=== PATIENT | male | born 1935 | race Caucasian/White ===

== ENCOUNTER → 2024-12-17 15:52 | Outpatient (REF) | payer MEDICARE, SELFPAY | LOC: HWRCS 15:52 | PROVIDERS: ATTENDING PHYSICIAN Internal Medicine Interventional Cardiology; FAMILY PHYSICIAN Family Medicine | DX: I25.2 Old myocardial infarction (principal) | CPT/HCPCS: 93306 ==

== ENCOUNTER 2025-04-09 10:25 | Emergency (ER) | payer MEDICARE, SELFPAY ==
[2025-04-09 10:41] VITALS: BP 166/65
--- NOTE | 2025-04-09 10:43 | ED.GENMED ---
History of Present Illness
General
Chief Complaint: Cold/Flu/URI Symptoms
Time Seen by Provider: 04/09/25 10:28
History of Present Illness
History of Present Illness:
89-year-old male with past medical history of CAD, hypertension, hyperlipidemia who presents with cough and weakness. He tested positive for influenza A and completed a course of Tamiflu on 04/05 but has continued to have progressive cough and
weakness so family sent him in for evaluation. He denies any chest pain, nausea, vomiting, diarrhea, fevers. Reports some shortness of breath with exertion.
Past History
Past History
ED Past Medical History: CAD, HTN, Hypercholesterolemia, NIDDM and Other (Kidney stone hiatal hernia, fractured ankle as a child)
ED Past Surgical History: None, Cardiac (2 stents in January) and Tonsilectomy
Social History
Tobacco: Non-smoker
Alcohol: None
Drug: None
Living: with family
Phy Exam
General Physical Exam
General Presentation: well appearing and no apparent distress
General Skin: warm and dry
General Habitus: normal
General Mental: alert
General Hydration: appears well hydrated
ENT Exam
ENT Exam: EOMI, pharynx normal, neck supple and normocephalic
Eye Exam
Eye Exam: PERRL, cornea clear and conjunctiva normal
Cardiovascular Exam
Cardiovascular Exam: regular rate/rhythm, no edema, no murmur and normal peripheral pulses
Pulmonary Exam
Pulmonary Exam: lungs clear, no respiratory distress, no rales, no crackles, no rhonchi, no stridor, no wheezing and no cough
Gastrointestinal Exam
Gastrointestinal Exam: normal bowel sounds, non tender, soft, no organomegaly, no pulsatile mass and non distended
Neurological Exam
Neurological Exam: alert, oriented x3, no motor deficits and speech normal
Musculoskeletal Exam
Musculoskeletal Exam: full ROM and no edema
Skin Exam
Skin Exam: normal color, warm/dry, no rash and no petechia
Psychiatric Exam
Psychiatric Exam: normal mood/affect
Course
Orders/Labs/Results
Orders:
Orders
04/09/25 10:39
CR Chest - 2 Views Urgent
Comment:
Reason For Exam: cough
04/09/25 10:40
Electrocardiogram (*1) Urgent
Reason for Study: Shortness of Breath
EKG- Treatment ONCE
04/09/25 10:55
COVID-19 Antigen Urgent
Source: Nasal Swab
Influenza A+B Rapid Molecular Urgent
ABHINAV Source: Nasal Swab
Specimen Description:
04/09/25 11:45
Basic Metabolic Panel Urgent
04/09/25 12:22
Complete Blood Count/With Diff Urgent
Abnormal Lab Results
04/09/25 04/09/25
11:45 12:22
RBC 4.07 L 10^6/uL
(4.70-6.10)
Hgb 12.7 L g/dL
(13.0-18.0)
Hct 38.4 L %
(39.0-52.0)
MCV 94.3 H fL
(80.0-94.0)
MCH 31.2 H pg
(27.0-31.0)
Absolute Lymphs (auto) 0.8 L 10^3/uL
(1.2-3.4)
Neutrophils % 76.8 H %
(42.2-75.2)
Lymphocytes % 13.1 L %
(20.5-51.1)
BUN 24 H mg/dl
(9-20)
Glucose 105 H mg/dl
(70-99)
04/09/25 12:22
04/09/25 11:45
Vital Signs
Initial and Last Documented VS:
Initial Vital Signs
Pulse Ox
97
04/09/25 10:29
Last Documented Vital Signs
Temp Pulse Resp BP Pulse Ox
37.1 C 63 21 144/61 94
04/09/25 10:41 04/09/25 12:00 04/09/25 12:00 04/09/25 12:00 04/09/25 12:00
MDM/Problems Addressed
Differential Diagnosis Includes:
CBC and BMP unremarkable. Patient was found to be influenza A positive which was found to him. He did complete a course of Tamiflu already. Patient states he just wanted to be sure that there was no other cause for his cough. Chest x-ray was
read as negative for pneumonia. Given this and he has remained on room air with normal vital signs he would like to return home which is reasonable. Return precautions discussed.
*Pulse Oximetry
Patient hypoxic: no
*Critical Care Note
Total Time (30-74mins, 75-104mins- exclusive of procedures): Not Applicable
ED Attending Note
-
Portions of this chart may have been created with voice recognition software.� Occasional wrong word or��sound alike� substitutions may have occurred due to the inherent limitations of voice recognition software.
Discharge Plan
Departure
Patient Disposition: Home (Routine Discharge)
Date of Disposition: 04/09/25
Time of Disposition: 13:46
Patient with high blood pressure during this ER visit?: No
Discharge Problem:
Influenza A, Cough
Prescriptions:
No Action
Aspirin
81 mg PO DAILY
Crestor
20 mg PO DAILY
Glipizide
2.5 mg PO DAILY
Losartan
25 mg PO DAILY
Norvasc:
5 mg PO DAILY
Pepcid:
40 mg PO DAILY
Referrals:
UNKNOWN - PT DOES,NOT KNOW [Family Provider]
Activity Restrictions/Additional Instructions:
You were seen in the emergency department today for flu A. It is normal to have a cough after her diagnosis and this can linger for several weeks. Return to the emergency department if you develop increasing shortness of breath, chest pain or
other concerning symptoms. You have already completed a course of Tamiflu.
Interventions
Interventions:
*General Assessment Last Done: 04/09/25 10:41
*Neglect/Abuse Screening Last Done: 04/09/25 10:41
*ED COVID-19 Vaccine History Last Done: 04/09/25 10:45
*ED Influenza Vaccine History Last Done: 04/09/25 10:45
*Risk Screen - Suicide (C-SSRS) Last Done: 04/09/25 11:30
*Nursing Disposition Last Done: 04/09/25 16:12
ED- Pulmonary Assessment Last Done: 04/09/25 11:52
Discharge Date and Time
Discharge Date/Time: 04/09/25 16:13
Print Language: MALIAN
[2025-04-09 10:45] VITALS: BMI 22.7
[2025-04-09 11:00] VITALS: BP 157/61
[2025-04-09 11:27] LABS: COVID-19 Antigen Negative (Negative)
[2025-04-09 12:00] VITALS: BP 144/61
[2025-04-09 12:25] LABS: Blood Urea Nitrogen 24 mg/dl (9-20); Calcium 9.0 mg/dl (8.4-10.2); Carbon Dioxide 23 mmol/L (22-30); Chloride 99 mmol/L (98-107); Estimated Creatinine Clearance 49 ml/min; Glucose 105 mg/dl (70-99); Potassium 4.2 mmol/L (3.5-5.1); Sodium 135 mmol/L (135-145); eGFR > 60.00
[2025-04-09 12:36] LABS: Hematocrit 38.4 % (39.0-52.0); Hemoglobin 12.7 g/dL (13.0-18.0); Mean Corp Hgb Conc. 33.1 g/dL (33.0-37.0); Mean Corpuscular Volume 94.3 fL (80.0-94.0); Nucleated Red Blood Cells % 0 % (-); Platelet Count 181 10^3/uL (130-400); Red Cell Dist. Width 12.0 % (11.5-14.5)
== END 2025-04-09 16:13 | disposition home or self-care (01) ==
LOC: EMR 10:25
PROVIDERS: Surgery Trauma Surgery; EMERGENCY PHYSICIAN Emergency Medicine
DX: J10.1 Influenza due to other identified influenza virus with other respiratory manifestations (principal); E11.9 Type 2 diabetes mellitus without complications; I25.10 Atherosclerotic heart disease of native coronary artery without angina pectoris; I10 Essential (primary) hypertension; E78.00 Pure hypercholesterolemia, unspecified; Z79.84 Long term (current) use of oral hypoglycemic drugs; Z79.82 Long term (current) use of aspirin; Z95.5 Presence of coronary angioplasty implant and graft
CPT/HCPCS: 99284; 71046; 80048; 85025; 87502; 87811